=== PATIENT | male | born 1970 | race Caucasian/White ===

== ENCOUNTER 2024-07-31 12:42 | Emergency (ER) | payer OTHER ==
[2024-07-31] MEDS: Ibuprofen 600 MG Tab PO ONE (13:51)
[2024-07-31] MEDS ORDERED: Azithromycin 250 MG Tab ONE (14:00)
[2024-07-31] MEDS ORDERED: Benzonatate 100 MG Cap ONE (14:00)
== END 2024-07-31 14:03 | disposition home or self-care (01) ==
LOC: LB.ED 12:42
DX: J06.9 Acute upper respiratory infection, unspecified (principal); B97.89 Other viral agents as the cause of diseases classified elsewhere; Z79.899 Other long term (current) drug therapy
CPT/HCPCS: 87651-QW; 99283; A9270-GY